=== PATIENT | female | born 1995 | race American Indian/Alaskan Native ===

== ENCOUNTER 2019-12-21 12:49 | Outpatient (CLI) | payer OTHER ==
[2019-12-21] MEDS ORDERED: LACTATED RINGERS 1,000 ML IV SCH (14:00)
[2019-12-21 14:31] LABS: Bacteria,Urine 1+ /HPF (Negative); Bilirubin,Urine NEG (Negative); Blood,Urine MOD (Negative); Color,Urine Straw (Yellow); Mucus,Urine FEW /HPF; Protein,Urine <15 mg/dL mg/dL (Negative); Urobilinogen,Urine < 2.0 mg/dL (<2.0)
[2019-12-21 14:33] LABS: Hematocrit 33.4 % (30.3-42.9); Hemoglobin 11.1 gm/dl (10.1-14.3); Mean Corpuscular HGB Conc 33 % (30-34); Mean Corpuscular Volume 86 fl (79-97); Platelet Count 281 K/mm3 (140-440); Red Blood Count 3.89 M/mm3 (3.65-5.03)
[2019-12-21 14:58] LABS: Alanine Aminotransferase 17 units/L (7-56); Uric Acid 2.8 mg/dL (3.5-7.6)
[2019-12-21 15:05] VITALS: BP 116/69
== END 2019-12-21 16:40 | disposition home or self-care (01) ==
LOC: TRG 12:49
PROVIDERS: ATTEND Obstetrics & Gynecology
DX: O16.3 Unspecified maternal hypertension, third trimester (principal); Z3A.35 35 weeks gestation of pregnancy
CPT/HCPCS: 36415; 59025; 81001; 82565; 82962; 83615; 84450; 84460; 84550; 85027

== ENCOUNTER 2019-12-28 15:14 | Outpatient (CLI) | payer OTHER ==
[2019-12-28] MEDS ORDERED: LACTATED RINGERS 500 ML IV ONE (16:09)
--- NOTE | 2019-12-28 18:20 | Ultrasound Report ---
ULTRASOUND BIOPHYSICAL PROFILE INDICATION / CLINICAL INFORMATION: labor. COMPARISON: None available. FINDINGS: AMNIOTIC FLUID INDEX (cm) = 12.8 PRESENTATION: Cephalic. HEART RATE (beats per minute): 156 IMPRESSION: 1. Normal CHRISTIANO. heart rate measures 156 bpm. Signer Name: Martin Amador MD Signed: 12/28/2019 6:16 PM Workstation Name: [id number]
[2019-12-28 19:19] LABS: Hematocrit 32.1 % (30.3-42.9); Hemoglobin 10.7 gm/dl (10.1-14.3); Mean Corpuscular HGB Conc 33 % (30-34); Mean Corpuscular Volume 85 fl (79-97); Platelet Count 261 K/mm3 (140-440); Red Blood Count 3.76 M/mm3 (3.65-5.03); Red Cell Distribution Width 15.1 % (13.2-15.2)
[2019-12-28 19:23] LABS: Alanine Aminotransferase 21 units/L (7-56); Uric Acid 3.3 mg/dL (3.5-7.6)
[2019-12-28 19:52] LABS: Bacteria,Urine 4+ /HPF (Negative); Bilirubin,Urine NEG (Negative); Blood,Urine NEG (Negative); Color,Urine Yellow (Yellow); Hyaline Casts,Urine 2 /LPF; Mucus,Urine FEW /HPF; Urobilinogen,Urine < 2.0 mg/dL (<2.0)
[2019-12-28 20:43] VITALS: BP 126/59
--- NOTE | 2019-12-28 21:28 | Ultrasound Report ---
ULTRASOUND OBSTETRIC INDICATION / CLINICAL INFORMATION: BPP. TECHNIQUE: Transabdominal. COMPARISON: Sonogram performed yesterday IMPRESSION: BREATHING MOVEMENT = 2 GROSS BODY MOVEMENT = 2 TONE = 2 QUALITATIVE AMNIOTIC FLUID VOLUME = 2 TOTAL BIOPHYSICAL SCORE = 8/8 heart rate 149 bpm Signer Name: Momo Martins MD Signed: 12/28/2019 9:24 PM Workstation Name: [id number]
== END 2019-12-28 20:45 | disposition home or self-care (01) ==
LOC: TRG 15:14
PROVIDERS: ATTEND Obstetrics & Gynecology
DX: O60.03 Preterm labor without delivery, third trimester (principal); Z3A.36 36 weeks gestation of pregnancy
CPT/HCPCS: 36415; 76815; 76819; 81001; 82565; 82962; 83615; 84450; 84460; 84550; 85027; 86850; 86900; 86901; 87086

== ENCOUNTER 2022-01-01 09:34 | Outpatient (CLI) | payer OTHER ==
[2022-01-01 12:07] VITALS: BP 119/73
== END 2022-01-01 12:39 | disposition home or self-care (01) ==
LOC: TRG 09:34 → APU 09:35 → TRG 12:39
PROVIDERS: ATTEND Obstetrics & Gynecology
DX: Z34.93 Encounter for supervision of normal pregnancy, unspecified, third trimester (principal); Z3A.39 39 weeks gestation of pregnancy
CPT/HCPCS: 59025

== ENCOUNTER 2022-01-02 08:42 | Inpatient (IN) | payer OTHER ==
[2022-01-02] MEDS ORDERED: AMPICILLIN/NS 2 GM/100 ML 2 GM/100 ML BAG IV ONE (09:32)
--- NOTE | 2022-01-02 09:42 | History and Physical Report ---
History of Present Illness Date of examination: 01/02/22 Date of admission: 01/02/22 Chief complaint: Contractions History of present illness: 26 year old presents to L&D with complaint of contractions beginning in middle of night last night. Patient reports small amount of bloody show. Denies leaking of fluid. Patient reports facial swelling. Denies headache or visual disturbance or nausea. LMP 04/02/21. EDC 01/07/22. significant for the following: obesity, vitamin D deficiency, GBS bacteriuria, history of GDM and preeclampsia with previous , headaches during the but none recently. labs are as follows: B+, antibody screen negative, rubella immune, hepatitis B surface antigen negative, HIV negative, RPR nonreactive, HSV 2 negative, gonorrhea negative, chlamydia negative, GBS positive, hemoglobin electrophoresis AA, AFP negative, 1 hour sugar test 70, repeat 1 hour sugar test 105. Past History Past Medical History: other (obesity, history of GDM and preeclampsia) Past Surgical History: no surgical history BOTTLER History: denies: chlamydia, gonorrhea, hepatitis B, hepatitis C, herpes, HIV, syphilis, trichomonas Family/Genetic History: diabetes Social history: lives with family, full code. denies: smoking, alcohol abuse, prescription drug abuse, IV drug use - Obstetrical History Expected Date of Delivery: 01/07/22 Actual Gestation: 39 Week(s) 2 Day(s) : 2 Para: 1 Hx # Term Pregnancies: 1 Number of Pregnancies: 0 Spontaneous Abortions: 0 Induced : 0 Number of Living Children: 1 Medications and Allergies Allergies Allergy/AdvReac Type Severity Reaction Status Date / Time No Known Allergies Allergy Verified 12/21/19 13:49 Home Medications Medication Instructions Recorded Confirmed Last Taken Type Vit-Fe Fumar-FA [ 1 tab PO QDAY 01/01/20 01/01/20 Unknown History Vitamin] glyBURIDE [Diabeta] 5 mg PO DAILY 01/01/20 01/01/20 Unknown History labetaloL [Labetalol 200mg TAB] 200 mg PO BID 01/01/20 01/01/20 Unknown History Active Meds: Active Medications Acetaminophen (Acetaminophen 325 Mg Tab) 650 mg PO Q4H PRN PRN Reason: Pain, Mild (1-3) Carboprost Tromethamine (Carboprost Tromethamine 250 Mcg/1 Ml Inj) 250 mcg IM ONCE PRN PRN Reason: Uterine Bleeding Ephedrine Sulfate (Ephedrine Sulfate 50 Mg/1 Ml Inj) 10 mg IV Q2M PRN PRN Reason: Hypotension Fentanyl (Fentanyl 100 Mcg/2 Ml Inj) 100 mcg IV Q2H PRN PRN Reason: Pain,Severe (7-10) LABOR PAIN Oxytocin/Sodium Chloride (Pitocin/Ns 30 Unit/500ml) 30 units in 500 mls @ 2 mls/hr IV TITR MAYTE; Protocol Lactated Ringer's (Lactated Ringers) 1,000 mls @ 125 mls/hr IV DIRECT MAYTE Oxytocin/Sodium Chloride (Pitocin/Ns 30 Unit/500ml) 30 units in 500 mls @ 40 mls/hr IV TITR MAYTE; Protocol Ampicillin Sodium (Ampicillin/Ns 2 Gm/100 Ml) 2 gm in 100 mls @ 100 mls/hr IV ONCE ONE; Protocol Stop: 01/02/22 10:31 Ampicillin Sodium (Ampicillin/Ns 1 Gm/50 Ml) 1 gm in 50 mls @ 100 mls/hr IV Q4H MAYTE; Protocol Magnesium Sulfate (Magnesium Sulfate 40gm/1000ml) 40 gm in 1,000 mls @ 50 mls/hr IV DIRECT MAYTE Magnesium Sulfate (Magnesium Sulfate 4gm/100ml) 4 gm in 100 mls @ 300 mls/hr IV ONCE ONE Stop: 01/02/22 09:59 Lidocaine (Lidocaine (2%) 20 Mg/1 Ml Vial 20 Ml Mdv) 20 ml INFILTRATI ONCE ONE Stop: 01/02/22 09:33 Loperamide HCl (Loperamide 2 Mg Cap) 2 mg PO ONCE PRN PRN Reason: give with Hemabate Methylergonovine Maleate (Methylergonovine Maleate 0.2 Mg/Ml Vial) 0.2 mg IM ONCE PRN PRN Reason: Uterine Bleeding Mineral Oil (Mineral Oil 30 Ml Oral Liqd) 30 ml PO QHS PRN PRN Reason: Constipation Misoprostol (Misoprostol 200 Mcg Tab) 800 mcg [place] ONCE PRN PRN Reason: Uterine Bleeding Nalbuphine HCl (Nalbuphine 10 Mg/1 Ml Inj) 10 mg IV Q2H PRN PRN Reason: Pain, Moderate (4-6) Ondansetron HCl (Ondansetron 4 Mg/2 Ml Inj) 4 mg IV Q8H PRN PRN Reason: Nausea And Vomiting Oxytocin (Oxytocin 10 Unit/1 Ml Inj) 10 unit IM ONCE PRN PRN Reason: Uterine Bleeding Terbutaline Sulfate (Terbutaline 1 Mg/1 Ml Inj) 0.25 mg SUB-Q ONCE PRN PRN Reason: Hyperstimulation/Hypertonicity Review of Systems All systems: negative (contractions, facial swelling) - Vital Signs Vital signs: Vital Signs Temp Pulse Resp BP Pulse Ox 98.7 F 91 H 20 144/95 98 01/02/22 09:06 01/02/22 09:06 01/02/22 09:06 01/02/22 09:06 01/02/22 09:06 Temp Pulse Resp BP Pulse Ox 98.7 F 91 H 20 144/95 98 01/02/22 09:06 01/02/22 09:06 01/02/22 09:06 01/02/22 09:06 01/02/22 09:06 - Physical Exam Abdomen: Positive: normal appearance, soft. Negative: distention, tenderness, guarding, rigidity Genitourinary (Female): Positive: normal external genitalia, normal perenium. Negative: perineal/vulvar lesions Vagina: Positive: normal moisture Uterus: Positive: enlarged. Negative: tender Anus/Rectum: Positive: normal perianal skin Extremities: Positive: edema (generalized edema). Negative: tenderness - Obstetrical FHR: category 1 Uterine Contraction Monitor Mode: External Cervical Dilatation: 7 Cervical Effacement Percentage: 90 station: -2 Uterine Contraction Pattern: Regular Uterine Contraction Intensity: Moderate Results All other labs normal. Assessment and Plan A: at 39 weeks, 2 days gestation. Active labor. GBS positive. Preeclampsia. P: Admit. Continuous EFM. GBS prophylaxis. Preeclamptic labs. Monitor BP. Magnesium Sulfate per protocol. Hydralazine for any severe range BPs. Informed Dr. Napier re: this patient.
[2022-01-02] MEDS ORDERED: NalbUPHINE 10 MG/1 ML INJ ONE (09:51)
[2022-01-02] MEDS ORDERED: OXYTOCIN 10 UNIT/1 ML INJ IM PRN (10:00)
[2022-01-02] MEDS ORDERED: LACTATED RINGERS 1,000 ML IV SCH (10:00)
[2022-01-02] MEDS ORDERED: fentaNYL 100 MCG/2 ML INJ IV PRN (10:00)
[2022-01-02] MEDS ORDERED: LOPERAMIDE 2 MG CAP PO PRN (10:00)
[2022-01-02] MEDS ORDERED: LIDOCAINE (2%) 20 MG/1 ML VIAL 20 ML MDV INFILTRATI NR (10:00)
[2022-01-02] MEDS ORDERED: miSOPROStol 200 MCG TAB PR PRN (10:00)
[2022-01-02] MEDS ORDERED: METHYLERGONOVINE MALEATE 0.2 MG/ML VIAL IM PRN (10:00)
[2022-01-02] MEDS ORDERED: ePHEDrine SULFATE 50 MG/1 ML INJ IV PRN ×2 (10:00→12:00)
[2022-01-02] MEDS ORDERED: CARBOPROST TROMETHAMINE 250 MCG/1 ML INJ IM PRN (10:00)
[2022-01-02] MEDS ORDERED: ONDANSETRON 4 MG/2 ML INJ IV PRN (10:00)
[2022-01-02] MEDS ORDERED: TERBUTALINE 1 MG/1 ML INJ SUB-Q PRN (10:00)
[2022-01-02] MEDS ORDERED: ACETAMINOPHEN 325 MG TAB PO PRN (10:00)
[2022-01-02] MEDS ORDERED: NalbUPHINE 10 MG/1 ML INJ IV PRN (10:00)
[2022-01-02] MEDS ORDERED: MAGNESIUM SULFATE 4 GM/100 ML BAG IV ONE (10:00)
[2022-01-02] MEDS ORDERED: OXYTOCIN DRIP 30 UNITS/500 ML BAG IV SCH ×2 (10:00)
[2022-01-02] MEDS ORDERED: hydrALAZINE 20 MG/1 ML INJ IV PRN (11:00)
[2022-01-02] MEDS: MAGNESIUM SULFATE 40GM/1000ML 40 GM/1,000 ML BAG IV SCH (11:10)
[2022-01-02 11:25] LABS: Hematocrit 35.4 % (30.3-42.9); Hemoglobin 11.4 gm/dl (10.1-14.3); Mean Corpuscular HGB Conc 32 % (30-34); Mean Corpuscular Volume 81 fl (79-97); Red Blood Count 4.37 M/mm3 (3.65-5.03); Red Cell Distribution Width 15.5 % (13.2-15.2)
[2022-01-02 11:36] LABS: Alanine Aminotransferase 10 units/L (7-56); Albumin 3.8 g/dL (3.9-5); Blood Urea Nitrogen 5 mg/dL (7-17); Calcium 9.4 mg/dL (8.4-10.2); Hemolysis Index 3; Uric Acid 5.1 mg/dL (3.5-7.6)
[2022-01-02 11:43] LABS: BUN/Creatinine Ratio 13
--- NOTE | 2022-01-02 11:44 | Anesthesia Consultation ---
Anesthesia Consult and Med Hx Date of service: 01/02/22 - Airway Anesthetic Teeth Evaluation: Good ROM Head & Neck: Adequate Mental/Hyoid Distance: Adequate Mallampati Class: Class II Intubation Access Assessment: Probably Good - Pre-Operative Health Status ASA Pre-Surgery Classification: ASA2 Proposed Anesthetic Plan: Epidural, Spinal - Pulmonary Hx Smoking: No Hx Asthma: No Hx Respiratory Symptoms: No SOB: No COPD: No Hx Pneumonia: No Hx Sleep Apnea: No - Cardiovascular System Hx Hypertension: No Hx Coronary Artery Disease: No Hx Heart Attack/AMI: No Hx Angina: No Hx Percutaneous Transluminal Coronary Angioplasty (PTCA): No Hx Cardia Arrhythmia: No Hx Pacemaker: No Hx Valvular Heart Disease: No Hx Heart Murmur: No Hx Peripheral Vascular Disease: No - Central Nervous System Hx Neuromuscular Disorder: No Hx Seizures: No CVA: No Hx Back Pain: Yes Hx Psychiatric Problems: No - Gastrointestinal Hx Ulcer: No Hx Gastroesophageal Reflux Disease: Yes - Endocrine Hx Renal Disease: No Hx End Stage Renal Disease: No Hx Cirrhosis: No Hx Liver Disease: No Hx Insulin Dependent Diabetes: No Hx Non-Insulin Dependent Diabetes: Yes Hx Thyroid Disease: No Hx Hypothyroidism: No Hx Hyperthyroidism: No - Hematic Hx Anemia: No Hx Sickle Cell Disease: No - Other Systems Hx Alcohol Use: No Hx Substance Use: No Hx Cancer: No Hx Obesity: Yes - Additional Comments Anesthesia Medical History Comments: h/o GDM, pre eclampsia
[2022-01-02 11:56] LABS: Platelet Count 229 K/mm3 (140-440)
[2022-01-02] MEDS ORDERED: FLU VACC QUAD 2021-22(6MOS UP)/PF 60 MCG/0.5 ML SYRINGE IM ONE (12:00)
[2022-01-02] MEDS ORDERED: NALOXONE 2 MG/2 ML INJ IV PRN (12:00)
[2022-01-02] MEDS ORDERED: fentaNYL-BUPIV 2 MCG/ML-0.125% 200 MCG/100 ML BAG EPIDURAL SCH (12:00)
--- NOTE | 2022-01-02 12:20 | Progress Note ---
Labor Epidural - Labor Epidural Start Time: 12:00 Stop Time: 12:15 Performed by:: ZEV MOORE Procedure: Combined spinal/epidural for labor Patient requesting epidural for labor pain. H&P, labs were reviewed. Patient IDed, procedure explained, all questions and concerns answered, and consent signed. Timeout performed immediately prior to procedure. Patient placed in sitting position. Sterile prep and drape in usual fashion. Skin anesthetized with 3ml of 1% lidocaine at L[2]- L [3] interspace. 17-gauge Touhy epidural needle advanced to CHIVO with saline @ 6cm. Negative CSF, negative blood via Touhy needle. 25g spinal needle advanced through Touhy until clear, free flowing CSF noted. 10 mg of Precedex injected into intrathecal space then spinal needle removed. Epidural catheter advanced to [11] centimeters. [Negative] aspiration and [negative] response to 1% lidocaine w/ epi test dose. Clear, sterile dressing applied and reinforced with tape. Patient tolerated procedure well, no immediate complications noted. Pain improved after procedure.
[2022-01-02] MEDS ORDERED: HYDROcodone/ACETAMINOPHEN 5-325 MG TAB PO PRN (13:35)
--- NOTE | 2022-01-02 13:50 | Procedure Note ---
OB Delivery Note - Delivery Date of Delivery: 01/02/22 Surgeon: MARIA TERESA GRAHAM Estimated blood loss: other (350 cc) - Vaginal Delivery presentation: vertex Delivery position: OA Intrapartum events: meconium, preeclampsia Delivery induction: none Delivery augmentation: rupture of membranes Delivery monitor: external FHT, external uterine Route of delivery: Delivery placenta: spontaneous Delivery cord: 3 umbilical vessels Episiotomy: none Delivery laceration: none Anesthesia: epidural Delivery comments: Spontaneous vaginal delivery at 13:09 of liveborn female infant weighing 7 lb. 8 oz. over intact perineum with apgars of 8/9. Meconium stained amniotic fluid. Respiratory/NICU called to attend delivery. was atraumatic; no nuchal cord. Baby placed on mom's chest immediately after delivery. Baby suctioned with bulb syringe and dried. Spontaneous cry and respirations. 3 vessel cord double clamped and cut. Baby taken to radiant warmer for further suctioning. Spontaneous delivery of intact placenta and membranes at 13:20. EBL 350 cc. Pitocin to IV fluids; Cytotec 800 mcg given rectally for uterine atony. Fundus firm and midline and below umbilicus. No lacerations noted. Vaginal sweep negative. Sponge count correct. Mother and baby stable in birthing room. Placenta to pathology. Patient will remain on magnesium sulfate for 24 hours.
[2022-01-02] MEDS ORDERED: AMPICILLIN/NS 1 GM/50 ML 1 GM/50 ML BAG IV SCH (14:00)
[2022-01-02] MEDS ORDERED: IBUPROFEN 600 MG TAB PO SCH (14:00)
[2022-01-02 16:56] LABS: Bacteria,Urine 1+ /HPF (Negative); Bilirubin,Urine NEG (Negative); Blood,Urine SM (Negative); Color,Urine Straw (Yellow); Mucus,Urine FEW /HPF; Protein,Urine <15 mg/dL mg/dL (Negative); Urobilinogen,Urine < 2.0 mg/dL (<2.0)
[2022-01-02 19:21] LABS: Hematocrit 32.4 % (30.3-42.9); Hemoglobin 10.2 gm/dl (10.1-14.3)
[2022-01-02] MEDS ORDERED: LACTATED RINGERS 200 ML IV ONE (21:35)
[2022-01-02] MEDS ORDERED: MINERAL OIL 30 ML ORAL LIQD PO PRN (22:00)
[2022-01-02] MEDS: HYDROcodone/ACETAMINOPHEN 5-325 MG TAB PO PRN (22:12)
[2022-01-02] MEDS: ceFAZolin/NS 1 GM/50 ML 1 GM/50 ML BAG IV SCH (22:45)
[2022-01-03] MEDS: HYDROcodone/ACETAMINOPHEN 5-325 MG TAB PO PRN ×3 (05:09→18:23)
--- NOTE | 2022-01-03 06:23 | Progress Note ---
Assessment and Plan A: day 1 S/P . Preeclampsia with severe features. On magnesium sulfate. Blood pressure controlled on Labetalol. Anemia. Mild tachycardia. P: Continue magnesium sulfate until 1:30 PM today. Continue Labetalol 100 mg po BID. Continue iron supplementation. Repeat CBC this morning. Urine culture pending. Continue Ancef 1 gram IV every 8 hours. Subjective - Subjective Date of service: 01/03/22 Principal diagnosis: day 1 S/P ; preeclampsia Interval history: Patient is receiving magnesium sulfate. Patient denies headache. Patient reports: appetite normal, pain well controlled, no nauseated : doing well Objective - Vital Signs Latest vital signs: Vital Signs Temp Pulse Resp BP BP BP Pulse Ox 01/03/22 06:15 94 H 131/76 94 01/03/22 06:10 95 H 99 01/03/22 06:05 94 H 100 01/03/22 06:00 95 H 100 01/03/22 05:55 100 H 99 01/03/22 05:50 94 H 99 01/03/22 05:45 107 H 99 01/03/22 05:40 102 H 99 01/03/22 05:35 98 H 98 01/03/22 05:30 102 H 97 01/03/22 05:25 110 H 96 01/03/22 05:20 92 H 98 01/03/22 05:15 101 H 140/73 94 01/03/22 05:11 98 F 20 98 01/03/22 05:10 107 H 98 01/03/22 05:05 105 H 99 01/03/22 05:02 110 H 93 01/03/22 05:00 104 H 99 01/03/22 04:55 105 H 100 01/03/22 04:50 101 H 99 01/03/22 04:45 102 H 100 01/03/22 04:40 107 H 100 01/03/22 04:35 103 H 100 01/03/22 04:30 107 H 98 01/03/22 04:25 92 H 100 01/03/22 04:20 99 H 99 01/03/22 04:15 102 H 123/78 97 01/03/22 04:10 102 H 100 01/03/22 04:05 101 H 99 01/03/22 04:00 98 H 99 03/26/22 03:55 104 H 100 01/03/22 03:50 99 H 99 01/03/22 03:48 96 H 94 01/03/22 03:45 100 H 99 01/03/22 03:40 99 H 98 01/03/22 03:35 102 H 100 01/03/22 03:30 96 H 99 01/03/22 03:25 89 98 01/03/22 03:20 101 H 97 01/03/22 03:15 97 H 138/76 94 01/03/22 03:10 98 H 98 01/03/22 03:05 97 H 98 01/03/22 03:00 95 H 97 01/03/22 02:55 103 H 100 01/03/22 02:50 106 H 99 01/03/22 02:45 100 H 100 01/03/22 02:40 97 H 99 01/03/22 02:35 105 H 99 01/03/22 02:30 83 99 01/03/22 02:25 93 H 98 01/03/22 02:20 90 98 01/03/22 02:16 96 H 124/66 01/03/22 02:15 96 H 96 01/03/22 02:10 97 H 99 01/03/22 02:05 105 H 100 01/03/22 02:00 94 H 99 01/03/22 01:55 103 H 99 01/03/22 01:50 105 H 99 01/03/22 01:45 103 H 100 01/03/22 01:40 102 H 99 01/03/22 01:35 107 H 99 01/03/22 01:30 101 H 99 01/03/22 01:25 110 H 99 01/03/22 01:20 103 H 99 01/03/22 01:16 106 H 129/68 01/03/22 01:14 98.3 F 109 H 18 100 01/03/22 01:09 111 H 99 01/03/22 01:08 106 H 89 01/03/22 01:04 108 H 99 01/03/22 00:59 110 H 98 01/03/22 00:54 111 H 97 01/03/22 00:49 105 H 99 01/03/22 00:44 101 H 99 01/03/22 00:39 107 H 98 01/03/22 00:34 113 H 99 01/03/22 00:29 109 H 99 01/03/22 00:24 115 H 100 01/03/22 00:19 107 H 99 01/03/22 00:15 106 H 130/77 01/03/22 00:14 107 H 98 01/03/22 00:09 110 H 100 01/03/22 00:04 99 H 98 01/02/22 23:58 99 H 97 01/02/22 23:53 100 H 97 01/02/22 23:48 98 H 99 01/02/22 23:43 106 H 100 01/02/22 23:38 104 H 100 01/02/22 23:33 102 H 98 01/02/22 23:30 104 H 118/69 01/02/22 23:28 104 H 100 01/02/22 23:23 108 H 100 01/02/22 23:18 114 H 100 01/02/22 23:13 108 H 100 01/02/22 23:08 107 H 99 01/02/22 23:03 109 H 100 01/02/22 23:02 70 56 L 01/02/22 22:58 109 H 99 01/02/22 22:53 107 H 100 01/02/22 22:48 112 H 99 01/02/22 22:43 111 H 100 01/02/22 22:38 109 H 99 01/02/22 22:33 114 H 100 01/02/22 22:28 108 H 100 01/02/22 22:23 111 H 100 01/02/22 22:16 110 H 113/94 98 01/02/22 22:11 110 H 98 01/02/22 22:10 110 H 153/93 01/02/22 22:06 112 H 100 01/02/22 22:01 107 H 100 01/02/22 21:56 111 H 100 01/02/22 21:51 111 H 100 01/02/22 21:46 105 H 98 01/02/22 21:41 109 H 100 01/02/22 21:36 104 H 100 01/02/22 21:31 102 H 100 01/02/22 21:26 111 H 99 01/02/22 21:21 107 H 100 01/02/22 21:16 106 H 153/96 100 01/02/22 21:11 99 H 99 01/02/22 21:06 111 H 99 01/02/22 21:01 104 H 99 01/02/22 20:56 103 H 100 01/02/22 20:51 103 H 100 01/02/22 20:46 107 H 100 01/02/22 20:41 101 H 99 01/02/22 20:36 98 H 100 01/02/22 20:31 98.6 F 89 18 100 01/02/22 20:29 96 H 141/80 01/02/22 20:26 102 H 99 01/02/22 20:21 101 H 98 01/02/22 20:16 97 H 142/77 99 01/02/22 20:11 103 H 100 01/02/22 20:06 114 H 99 01/02/22 20:03 83 L 01/02/22 20:01 60 90 01/02/22 19:58 90 01/02/22 19:56 42 L 86 01/02/22 19:51 93 H 93 01/02/22 19:46 91 H 90 01/02/22 19:40 96 H 97 01/02/22 19:35 97 H 97 01/02/22 19:30 94 H 96 01/02/22 19:29 110 H 93 01/02/22 19:24 108 H 100 01/02/22 19:22 99 H 94 01/02/22 19:19 93 H 99 01/02/22 19:14 89 126/71 97 01/02/22 19:09 99 H 98 01/02/22 19:07 102 H 93 01/02/22 19:04 95 H 98 01/02/22 18:59 95 H 97 01/02/22 18:57 105 H 94 01/02/22 18:54 99 H 97 01/02/22 18:52 93 H 94 01/02/22 18:49 88 138/67 97 01/02/22 18:44 86 96 01/02/22 18:39 88 98 01/02/22 18:34 92 H 126/62 97 01/02/22 18:29 89 99 01/02/22 18:24 85 96 01/02/22 18:19 102 H 133/69 98 01/02/22 18:14 106 H 98 01/02/22 18:09 107 H 98 01/02/22 18:07 103 H 93 01/02/22 18:04 100 H 144/85 99 01/02/22 17:59 90 98 01/02/22 17:54 93 H 99 01/02/22 17:49 95 H 145/88 99 01/02/22 17:44 90 98 01/02/22 17:39 92 H 98 01/02/22 17:34 87 140/79 96 01/02/22 17:29 99 H 95 01/02/22 17:27 115 H 94 01/02/22 17:24 110 H 96 01/02/22 17:19 96 H 153/87 99 01/02/22 17:14 93 H 98 01/02/22 17:09 102 H 96 01/02/22 17:04 97 H 147/85 99 01/02/22 16:59 104 H 99 01/02/22 16:54 95 H 94 01/02/22 16:49 97 H 145/90 96 01/02/22 16:44 101 H 96 01/02/22 16:39 104 H 94 01/02/22 16:34 93 H 152/87 95 01/02/22 16:32 87 94 01/02/22 16:29 94 H 96 01/02/22 16:27 98.2 F 111 H 16 158/96 158/96 95 01/02/22 16:26 89 94 01/02/22 16:24 96 H 96 01/02/22 16:20 106 H 93 01/02/22 16:19 104 H 151/96 95 01/02/22 16:14 88 96 01/02/22 16:09 100 H 98 01/02/22 16:04 101 H 143/89 95 01/02/22 16:02 90 92 01/02/22 15:59 95 H 93 01/02/22 15:54 95 H 96 01/02/22 15:49 87 143/93 98 01/02/22 15:44 88 95 01/02/22 15:42 91 H 94 01/02/22 15:39 83 100 01/02/22 15:35 99 H 91 01/02/22 15:34 94 H 137/88 96 01/02/22 15:30 103 H 90 01/02/22 15:29 103 H 95 01/02/22 15:24 97 H 95 01/02/22 15:19 97 H 131/82 98 01/02/22 15:17 92 01/02/22 15:14 107 H 96 01/02/22 15:09 96 H 94 01/02/22 15:08 102 H 95 01/02/22 15:04 95 H 140/83 01/02/22 15:03 91 H 93 01/02/22 14:58 97 H 97 01/02/22 14:54 93 H 93 01/02/22 14:53 95 H 95 01/02/22 14:49 91 H 127/77 01/02/22 14:47 92 H 98 01/02/22 14:46 90 91 01/02/22 14:42 94 H 97 01/02/22 14:39 84 01/02/22 14:37 92 H 98 01/02/22 14:34 97 H 127/80 01/02/22 14:32 94 H 97 01/02/22 14:27 99 H 97 01/02/22 14:22 97 H 98 01/02/22 14:20 102 H 91 01/02/22 14:19 108 H 128/80 01/02/22 14:17 105 H 95 01/02/22 14:12 154 H 93 01/02/22 14:07 112 H 95 01/02/22 14:02 106 H 97 01/02/22 13:59 115 H 150/84 01/02/22 13:57 121 H 95 01/02/22 13:55 120 H 88 01/02/22 13:52 110 H 98 01/02/22 13:50 71 93 01/02/22 13:47 98.4 F 110 H 16 96 01/02/22 13:42 115 H 0 L 01/02/22 13:36 116 H 97 01/02/22 13:34 81 L 01/02/22 13:31 116 H 96 01/02/22 13:28 129 H 91 01/02/22 13:26 114 H 98 01/02/22 13:21 120 H 99 01/02/22 13:20 114 H 126/71 01/02/22 13:19 117 H 126/67 01/02/22 13:16 119 H 95 01/02/22 13:11 128 H 93 01/02/22 13:06 134 H 135/74 97 01/02/22 13:01 123 H 96 01/02/22 12:55 107 H 98 01/02/22 12:50 112 H 126/96 96 01/02/22 12:45 117 H 99 01/02/22 12:40 127 H 96 01/02/22 12:37 82 87 01/02/22 12:35 120 H 118/63 97 01/02/22 12:30 120 H 99 01/02/22 12:25 119 H 98 01/02/22 12:21 107 H 155/73 01/02/22 12:20 102 H 98 01/02/22 12:19 94 H 154/74 01/02/22 12:15 89 98 01/02/22 12:14 81 163/89 01/02/22 12:10 88 98 01/02/22 12:09 100 H 163/94 01/02/22 12:05 101 H 98 01/02/22 12:04 96 H 172/103 01/02/22 12:02 110 H 157/87 01/02/22 12:00 108 H 98 01/02/22 11:56 78 93 01/02/22 11:55 75 97 01/02/22 11:50 95 H 98 01/02/22 11:49 87 155/79 01/02/22 11:45 88 94 01/02/22 11:44 85 94 01/02/22 11:40 82 98 01/02/22 11:35 84 98 01/02/22 11:34 79 145/72 01/02/22 11:30 98 H 97 01/02/22 11:29 89 94 01/02/22 11:25 84 96 01/02/22 11:24 92 H 93 01/02/22 11:20 92 H 99 01/02/22 11:18 98 H 144/90 01/02/22 11:15 98 H 95 01/02/22 11:10 89 96 01/02/22 11:05 85 99 01/02/22 11:04 86 16 147/86 01/02/22 11:00 89 97 01/02/22 10:55 93 H 98 01/02/22 10:50 86 97 01/02/22 10:48 96 H 145/83 01/02/22 10:45 91 H 97 01/02/22 10:40 108 H 98 01/02/22 10:39 83 94 01/02/22 10:35 112 H 97 01/02/22 10:34 82 131/70 94 01/02/22 10:30 95 H 96 01/02/22 10:27 86 94 01/02/22 10:25 84 97 01/02/22 10:20 94 H 98 01/02/22 10:15 88 96 01/02/22 10:10 78 97 01/02/22 10:06 93 H 151/90 01/02/22 10:05 78 97 01/02/22 10:04 20 01/02/22 10:00 87 99 01/02/22 09:55 98 H 97 01/02/22 09:51 01/02/22 09:48 82 192/95 01/02/22 09:06 98.7 F 91 H 20 144/95 98 Pulse Ox 01/03/22 06:15 01/03/22 06:10 01/03/22 06:05 01/03/22 06:00 01/03/22 05:55 01/03/22 05:50 01/03/22 05:45 01/03/22 05:40 01/03/22 05:35 01/03/22 05:30 01/03/22 05:25 01/03/22 05:20 01/03/22 05:15 01/03/22 05:11 01/03/22 05:10 01/03/22 05:05 01/03/22 05:02 01/03/22 05:00 01/03/22 04:55 01/03/22 04:50 01/03/22 04:45 01/03/22 04:40 01/03/22 04:35 01/03/22 04:30 01/03/22 04:25 01/03/22 04:20 01/03/22 04:15 01/03/22 04:10 01/03/22 04:05 01/03/22 04:00 01/03/22 03:55 01/03/22 03:50 01/03/22 03:48 01/03/22 03:45 01/03/22 03:40 01/03/22 03:35 01/03/22 03:30 01/03/22 03:25 01/03/22 03:20 01/03/22 03:15 01/03/22 03:10 01/03/22 03:05 01/03/22 03:00 01/03/22 02:55 01/03/22 02:50 01/03/22 02:45 01/03/22 02:40 01/03/22 02:35 01/03/22 02:30 01/03/22 02:25 01/03/22 02:20 01/03/22 02:16 01/03/22 02:15 01/03/22 02:10 01/03/22 02:05 01/03/22 02:00 01/03/22 01:55 01/03/22 01:50 01/03/22 01:45 01/03/22 01:40 01/03/22 01:35 01/03/22 01:30 01/03/22 01:25 01/03/22 01:20 01/03/22 01:16 01/03/22 01:14 01/03/22 01:09 01/03/22 01:08 01/03/22 01:04 01/03/22 00:59 01/03/22 00:54 01/03/22 00:49 01/03/22 00:44 01/03/22 00:39 01/03/22 00:34 01/03/22 00:29 01/03/22 00:24 01/03/22 00:19 01/03/22 00:15 01/03/22 00:14 01/03/22 00:09 01/03/22 00:04 01/02/22 23:58 01/02/22 23:53 01/02/22 23:48 01/02/22 23:43 01/02/22 23:38 01/02/22 23:33 01/02/22 23:30 01/02/22 23:28 01/02/22 23:23 01/02/22 23:18 01/02/22 23:13 01/02/22 23:08 01/02/22 23:03 01/02/22 23:02 01/02/22 22:58 01/02/22 22:53 01/02/22 22:48 01/02/22 22:43 01/02/22 22:38 01/02/22 22:33 01/02/22 22:28 01/02/22 22:23 01/02/22 22:16 01/02/22 22:11 01/02/22 22:10 01/02/22 22:06 01/02/22 22:01 01/02/22 21:56 01/02/22 21:51 01/02/22 21:46 01/02/22 21:41 01/02/22 21:36 01/02/22 21:31 01/02/22 21:26 01/02/22 21:21 01/02/22 21:16 01/02/22 21:11 01/02/22 21:06 01/02/22 21:01 01/02/22 20:56 01/02/22 20:51 01/02/22 20:46 01/02/22 20:41 01/02/22 20:36 01/02/22 20:31 01/02/22 20:29 01/02/22 20:26 01/02/22 20:21 01/02/22 20:16 01/02/22 20:11 01/02/22 20:06 01/02/22 20:03 01/02/22 20:01 01/02/22 19:58 01/02/22 19:56 01/02/22 19:51 01/02/22 19:46 01/02/22 19:40 01/02/22 19:35 01/02/22 19:30 01/02/22 19:29 01/02/22 19:24 01/02/22 19:22 01/02/22 19:19 01/02/22 19:14 01/02/22 19:09 01/02/22 19:07 01/02/22 19:04 01/02/22 18:59 01/02/22 18:57 01/02/22 18:54 01/02/22 18:52 01/02/22 18:49 01/02/22 18:44 01/02/22 18:39 01/02/22 18:34 01/02/22 18:29 01/02/22 18:24 01/02/22 18:19 01/02/22 18:14 01/02/22 18:09 01/02/22 18:07 01/02/22 18:04 01/02/22 17:59 01/02/22 17:54 01/02/22 17:49 01/02/22 17:44 01/02/22 17:39 01/02/22 17:34 01/02/22 17:29 01/02/22 17:27 01/02/22 17:24 01/02/22 17:19 01/02/22 17:14 01/02/22 17:09 01/02/22 17:04 01/02/22 16:59 01/02/22 16:54 01/02/22 16:49 01/02/22 16:44 01/02/22 16:39 01/02/22 16:34 01/02/22 16:32 01/02/22 16:29 01/02/22 16:27 01/02/22 16:26 01/02/22 16:24 01/02/22 16:20 01/02/22 16:19 01/02/22 16:14 01/02/22 16:09 01/02/22 16:04 01/02/22 16:02 01/02/22 15:59 01/02/22 15:54 01/02/22 15:49 01/02/22 15:44 01/02/22 15:42 01/02/22 15:39 01/02/22 15:35 01/02/22 15:34 01/02/22 15:30 01/02/22 15:29 01/02/22 15:24 01/02/22 15:19 01/02/22 15:17 01/02/22 15:14 01/02/22 15:09 01/02/22 15:08 01/02/22 15:04 01/02/22 15:03 01/02/22 14:58 01/02/22 14:54 01/02/22 14:53 01/02/22 14:49 01/02/22 14:47 01/02/22 14:46 01/02/22 14:42 01/02/22 14:39 01/02/22 14:37 01/02/22 14:34 01/02/22 14:32 01/02/22 14:27 01/02/22 14:22 01/02/22 14:20 01/02/22 14:19 01/02/22 14:17 01/02/22 14:12 01/02/22 14:07 01/02/22 14:02 01/02/22 13:59 01/02/22 13:57 01/02/22 13:55 01/02/22 13:52 01/02/22 13:50 01/02/22 13:47 01/02/22 13:42 01/02/22 13:36 01/02/22 13:34 01/02/22 13:31 01/02/22 13:28 01/02/22 13:26 01/02/22 13:21 01/02/22 13:20 01/02/22 13:19 01/02/22 13:16 01/02/22 13:11 01/02/22 13:06 01/02/22 13:01 01/02/22 12:55 01/02/22 12:50 01/02/22 12:45 01/02/22 12:40 01/02/22 12:37 01/02/22 12:35 01/02/22 12:30 01/02/22 12:25 01/02/22 12:21 01/02/22 12:20 01/02/22 12:19 01/02/22 12:15 01/02/22 12:14 01/02/22 12:10 01/02/22 12:09 01/02/22 12:05 01/02/22 12:04 01/02/22 12:02 01/02/22 12:00 01/02/22 11:56 01/02/22 11:55 01/02/22 11:50 01/02/22 11:49 01/02/22 11:45 01/02/22 11:44 01/02/22 11:40 01/02/22 11:35 01/02/22 11:34 01/02/22 11:30 01/02/22 11:29 01/02/22 11:25 01/02/22 11:24 01/02/22 11:20 01/02/22 11:18 01/02/22 11:15 01/02/22 11:10 01/02/22 11:05 01/02/22 11:04 01/02/22 11:00 01/02/22 10:55 01/02/22 10:50 01/02/22 10:48 01/02/22 10:45 01/02/22 10:40 01/02/22 10:39 01/02/22 10:35 01/02/22 10:34 01/02/22 10:30 01/02/22 10:27 01/02/22 10:25 01/02/22 10:20 01/02/22 10:15 01/02/22 10:10 01/02/22 10:06 01/02/22 10:05 01/02/22 10:04 01/02/22 10:00 01/02/22 09:55 01/02/22 09:51 98 01/02/22 09:48 01/02/22 09:06 Intake and Output 01/02/22 01/02/22 01/03/22 15:59 23:59 07:59 Output Total 600 450 450 Balance -600 -450 -450 Output: Urine 600 450 450 Indwelling Catheter 600 450 450 Other: Total, Output Amount 600 300 200 Weight 94.347 kg Estimated Blood Loss 350 - Exam Cardiovascular: Present: Regular rate Lungs: Present: Clear to auscultation Abdomen: Present: normal appearance, soft. Absent: distention, tenderness, guarding, rigidity Uterus: Present: normal, firm, fundal height below umbilicus (fundus firm and midline at 2 FB below umbilicus). Absent: bogginess, tenderness Extremities: Absent: tenderness - Labs Labs: Abnormal lab results 01/02/22 01/02/22 01/02/22 Range/Units 09:39 09:50 09:50 MCH 26 L (28-32) pg RDW 15.5 H (13.2-15.2) % Carbon Dioxide 20 L (22-30) mmol/L BUN 5 L (7-17) mg/dL Creatinine 0.4 L (0.6-1.2) mg/dL Magnesium (1.7-2.3) mg/dL Alkaline Phosphatase 165 H (35-129) units/L Lactate Dehydrogenase 201 H (91-180) units/L Albumin 3.8 L (3.9-5) g/dL Urine WBC (Auto) 17.0 H (0.0-6.0) /HPF 01/02/22 01/02/22 01/02/22 Range/Units 17:02 17:02 19:00 MCH (28-32) pg RDW (13.2-15.2) % Carbon Dioxide (22-30) mmol/L BUN (7-17) mg/dL Creatinine (0.6-1.2) mg/dL Magnesium 11.30 H 15.20 H 4.00 H (1.7-2.3) mg/dL Alkaline Phosphatase (35-129) units/L Lactate Dehydrogenase (91-180) units/L Albumin (3.9-5) g/dL Urine WBC (Auto) (0.0-6.0) /HPF 01/02/22 01/03/22 Range/Units 23:02 04:09 MCH (28-32) pg RDW (13.2-15.2) % Carbon Dioxide (22-30) mmol/L BUN (7-17) mg/dL Creatinine (0.6-1.2) mg/dL Magnesium 3.80 H 4.00 H (1.7-2.3) mg/dL Alkaline Phosphatase (35-129) units/L Lactate Dehydrogenase (91-180) units/L Albumin (3.9-5) g/dL Urine WBC (Auto) (0.0-6.0) /HPF
[2022-01-03] MEDS: ceFAZolin/NS 1 GM/50 ML 1 GM/50 ML BAG IV SCH ×3 (06:41→21:47)
[2022-01-03 08:27] LABS: Basophils % (Auto) 0.2 % (0.0-1.8); Eosinophils # (Auto) 0.1 K/mm3 (0.0-0.4); Hematocrit 30.8 % (30.3-42.9); Hemoglobin 9.9 gm/dl (10.1-14.3); Lymphocytes # (Auto) 1.4 K/mm3 (1.2-5.4); Lymphocytes % (Auto) 14.7 % (13.4-35.0); Mean Corpuscular HGB Conc 32 % (30-34); Mean Corpuscular Volume 82 fl (79-97); Monocytes # (Auto) 0.7 K/mm3 (0.0-0.8); Monocytes % (Auto) 7.6 % (0.0-7.3); Platelet Count 232 K/mm3 (140-440); Red Blood Count 3.77 M/mm3 (3.65-5.03); Red Cell Distribution Width 15.9 % (13.2-15.2)
[2022-01-03] MEDS: MAGNESIUM SULFATE 40GM/1000ML 40 GM/1,000 ML BAG IV SCH (08:54)
[2022-01-03] MEDS: DOCUSATE SODIUM 100 MG CAP PO SCH ×2 (09:08→21:46)
--- NOTE | 2022-01-03 12:10 | Post Anesthesia Evaluation ---
- Post Anesthesia Evaluation Patient Participated: Yes Airway Patent: Yes Stable Respiratory Function: Yes Nausea/Vomiting: No Temp > 96.8F: Yes Pain Manageable: Yes Adequeate Hydration: Yes Anesthesia Complications: No Block Receding Appropriately: Yes Patient on Ventilator: No
[2022-01-03] MEDS: FERROUS SULFATE 325 MG TAB PO SCH (21:46)
[2022-01-04] MEDS: FERROUS SULFATE 325 MG TAB PO SCH (09:25)
[2022-01-04] MEDS: HYDROcodone/ACETAMINOPHEN 5-325 MG TAB PO PRN (09:25)
[2022-01-04] MEDS: DOCUSATE SODIUM 100 MG CAP PO SCH (09:26)
--- NOTE | 2022-01-04 12:46 | Progress Note ---
Assessment and Plan A: day 2 S/P . Severe preeclampsia, S/P magnesium sulfate. BPs controlled with Labetalol 100 mg po BID. Anemia. P: Continue Labetalol 100 mg po BID. Continue iron supplementation. Continue routine care. Anticipate discharge home tomorrow morning if patient continues to do well. Subjective - Subjective Date of service: 01/04/22 Principal diagnosis: day 2 S/P ; preeclampsia Interval history: Patient denies headache, visual disturbance, N/V, chest pain, SOB, or leg pain. Patient reports: appetite normal, voiding normally, pain well controlled, flatus , ambulating normally, no dizzy ambulation, no nauseated [place]: doing well Objective - Vital Signs Latest vital signs: Vital Signs Temp Pulse Resp BP BP Pulse Ox Pulse Ox 01/04/22 08:20 98 01/04/22 07:23 97.9 F 68 18 142/79 99 01/04/22 00:52 98.9 F 91 H 20 133/81 97 01/03/22 21:47 98.2 F 85 18 138/89 138/89 100 01/03/22 19:50 97 01/03/22 16:15 97.6 F 80 18 128/89 99 01/03/22 13:20 98.1 F 84 16 129/78 99 01/03/22 12:48 84 90 01/03/22 12:44 91 Intake and Output 01/03/22 01/04/22 01/04/22 23:59 07:59 15:59 Intake Total 400 600 120 Balance 400 600 120 Intake: Oral 400 240 120 Intake, Free Water 360 Other: Total, Intake Amount 400 240 120 # Voids Void 1 1 1 - Exam Cardiovascular: Present: Regular rate Lungs: Present: Clear to auscultation Abdomen: Present: normal appearance, soft. Absent: distention, tenderness, guarding, rigidity Uterus: Present: normal, firm, fundal height below umbilicus (fundus firm and midline at 2 FB below umbilicus). Absent: bogginess, tenderness Extremities: Absent: tenderness
--- NOTE | 2022-01-04 16:22 | Discharge Summary ---
Providers - Providers Date of Admission: 01/02/22 08:43 Date of discharge: 01/04/22 Attending physician: MARIA ISABEL BRITTON Primary care physician: MARIA ISABEL BRITTON Hospitalization Reason for admission: active labor Delivery: Episiotomy: none Laceration: none Other procedures: none complications: none Discharge diagnosis: IUP at term delivered [place] baby: female Pertinent studies: Labs Hospital course: Stable hospital course Condition at discharge: Good Disposition: 01 HOME / SELF CARE / HOMELESS - Discharge Diagnoses (1) Term delivered Status: Acute (2) Anemia Status: Acute Plan - Discharge Medications Prescriptions: Ferrous Sulfate [Feosol 325 MG tab] 325 mg PO BID 30 Days #60 tablet labetaloL [Labetalol 100mg TAB] 100 mg PO Q12H 30 Days #60 tab - Provider Discharge Summary Activity: routine, no sex for 6 weeks, no heavy lifting 4 weeks, no strenuous exercise Diet: routine Instructions: routine Additional instructions: Keep taking Labetalol and Ferrous Sulfate at home as prescribed. Follow up at [facility] office tomorrow 01/05/22 for BP check. Call your doctor immediately for: * Fever > 100.5 * Heavy vaginal bleeding ( >1 pad per hour) * Severe persistent headache * Shortness of breath * Reddened, hot, painful area to leg or breast - Follow up plan Follow up: MARIA TERESA GRAHAM CNM [Advanced Practice Nurse] - 01/05/22
--- NOTE | 2022-01-04 16:22 | Event Note ---
Date: 01/04/22 Patient requests discharge home this afternoon. Discharge home today OK'd by Dr. Napier. Rx Labetalol 100 mg po BID and Ferrous Sulfate 325 mg po BID. Discussed with patient discharge instructions and warning signs. Advised patient to continue taking Labetalol and Ferrous Sulfate at home. Advised patient to avoid intercourse, lifting, and housework. Advised patient to follow up at [facility] office tomorrow 01/05/22 for a BP check. Patient voiced understanding of all instructions.
[2022-01-04 17:25] VITALS: BP 126/69
== END 2022-01-04 17:40 | disposition home or self-care (01) | DRG 774 ==
LOC: TRG 08:42 → APU 08:43 → LD 08:44 → TRG 09:38 → OB 01-03 14:34
PROVIDERS: ADMIT Obstetrics & Gynecology; ATTEND Obstetrics & Gynecology
PROC: 10E0XZZ Delivery of Products of Conception, External Approach (ICD-10-PCS; principal; 2022-01-02)
PROC: 3E0R3BZ Introduction of Anesthetic Agent into Spinal Canal, Percutaneous Approach (ICD-10-PCS; 2022-01-02)
PROC: 00HU33Z Insertion of Infusion Device into Spinal Canal, Percutaneous Approach (ICD-10-PCS; 2022-01-02)
DX: O14.14 Severe pre-eclampsia complicating childbirth (principal); O99.893 Other specified diseases and conditions complicating puerperium; O77.0 Labor and delivery complicated by meconium in amniotic fluid; O99.824 Streptococcus B carrier state complicating childbirth; O99.62 Diseases of the digestive system complicating childbirth; O62.2 Other uterine inertia; K21.9 Gastro-esophageal reflux disease without esophagitis; O90.81 Anemia of the puerperium; R00.0 Tachycardia, unspecified; Z37.0 Single live birth; Z3A.39 39 weeks gestation of pregnancy
CPT/HCPCS: 36415; 59025; 80053; 81001; 83615; 83735; 84550; 85014; 85018; 85025; 85027; 86592; 86850; 86900; 86901; 87086; 88307; G0378; J0290; J0690; J2300; J3475; J7120